=== PATIENT | female | born 1935 | race Caucasian/White ===

== ENCOUNTER 2018-12-29 10:49 | Emergency (ER) | payer MEDICARE ==
[2018-12-29 11:04] VITALS: RESP 18
[2018-12-29] MEDS ORDERED: LIDOCAINE 1% INJ 10MG/ML (20 ML MDV) SQ ONE (11:14)
--- NOTE | 2018-12-29 11:22 | ED ---
General Adult HPI - General Chief complaint: Wound/Laceration Stated complaint: hand laceration Time Seen by Provider: 12/29/18 11:07 Source: patient, RN notes reviewed Mode of arrival: ambulatory Limitations: no limitations - History of Present Illness Initial comments: 83-year-old female presents to the emergency department for a chief complaint of laceration to the left pinky. Patient states she was wearing her slippers and coming back into her condo when she did not pick up operator her foot fired and tripped. Patient states she hit her hand against the side of the door and it cut her. Patient did not hit her head. She did not sustain any other injuries. There is no dizziness or lightheadedness preceding the fall. Patient is up-to-date on tetanus.Patient has no other complaints at this time including shortness of breath, chest pain, abdominal pain, nausea or vomiting, headache, or visual changes. - Related Data Home Medications Medication Instructions Recorded Confirmed Levothyroxine Sodium [Synthroid] 25 mcg PO DAILY 09/26/14 09/26/14 Pravastatin Sodium [Pravachol] 1 tab PO HS 09/26/14 09/26/14 Fish Oil(Unknown) 1 cap PO DAILY@1200 12/29/18 12/29/18 Multivitamins, Thera [Multivitamin 1 tab PO DAILY@1200 12/29/18 12/29/18 (formulary)] Vitamin C(Unknown) 1 tab PO DAILY@1200 12/29/18 12/29/18 Vitamin C/Biotin [Hair, Skin and 1 tab PO DAILY@1200 12/29/18 12/29/18 Nails] Allergies Allergy/AdvReac Type Severity Reaction Status Date / Time No Known Allergies Allergy Verified 12/29/18 11:54 Review of Systems ROS Statement: Those systems with pertinent positive or pertinent negative responses have been documented in the HPI. ROS Other: All systems not noted in ROS Statement are negative. Past Medical History Past Medical History: Hyperlipidemia, Thyroid Disorder Additional Past Medical History / Comment(s): on synthroid; gets heart burn depending on what she eats History of Any Multi-Drug Resistant Organisms: None Reported Past Surgical History: Orthopedic Surgery, Tonsillectomy Additional Past Surgical History / Comment(s): T&A WHILE IN COLLEGE; CARPEL TUNNEL RELEASE RT HAND; SKIN CLOSURE DUE TO A CUT FROM BROKEN GLASS. Smoking Status: Former smoker Past Alcohol Use History: None Reported Past Drug Use History: None Reported - Past Family History Father Family Medical History: Prostate Disorder Additional Family Medical History / Comment(s): FATHER OF PROSTATE CANCER General Exam Limitations: no limitations General appearance: alert, in no apparent distress Head exam: Present: atraumatic, normocephalic, normal inspection Eye exam: Present: normal appearance, PERRL, EOMI. Absent: scleral icterus, conjunctival injection ENT exam: Present: normal exam, mucous membranes moist Neck exam: Present: normal inspection, full ROM. Absent: tenderness, meningismus, lymphadenopathy Respiratory exam: Present: normal lung sounds bilaterally. Absent: respiratory distress, wheezes, rales, rhonchi, stridor Cardiovascular Exam: Present: regular rate, normal rhythm, normal heart sounds. Absent: systolic murmur, diastolic murmur, rubs, gallop, clicks Extremities exam: Present: full ROM (Full range motion of the left fifth digit), normal capillary refill (Capillary refill less than 2 seconds, radial pulse 2+ in the left upper extremity), other (Sensation intact in the left upper extremity. There is a 3 cm laceration noted on the palmar ulnar surface proximal phalanx left fifth finger. This is flap-like in nature. No evidence of foreign body. No evidence of deep structure injury.) Course Vital Signs 12/29/18 11:02 Temperature 98.4 F Pulse Rate 80 Respiratory 18 Rate Blood Pressure 154/83 O2 Sat by Pulse 96 Oximetry Procedures - Laceration Laceration #1 Consent Obtained: verbal consent Indication: laceration Site: other (Finger) Size (cm): 3 Description: flap Depth: simple, single layer Anesthetic Used: lidocaine 1% Anesthesia Technique: local infiltration Amount (mls): 2 Pre-repair: wound explored, irrigated extensively (With saline pressure irrigation), deep structures intact Type of Sutures: nylon Size of Sutures: 5-0 Number of Sutures: 6 Technique: simple, interrupted Patient Tolerated Procedure: well, no complications Medical Decision Making - Medical Decision Making 83-year-old female presents to the emergency department for a chief complaint of laceration. Patient fell after a trip and fall and hit her hand against the door. Patient has a 3 cm flap-like laceration noted to the left fifth digit. Did not hit her head or sustain any other injuries. No blood thinners. This was repaired using simple interrupted sutures without any difficulty. Discussed follow-up precautions and return in 7-10 days. Discussed returning if she has any other worsening symptoms. Up-to-date on tetanus Disposition Clinical Impression: Laceration Disposition: HOME SELF-CARE Condition: Good Instructions (If sedation given, give patient instructions): Care For Your Stitches (ED), Laceration (ED) Additional Instructions: Please keep the area clean. You may shower after 24 hours. Return in 7-10 days to have sutures removed. Return if you have any worsening symptoms such as signs of infection including streaking redness, spreading redness, drainage, or fever. Is patient prescribed a controlled substance at d/c from ED?: No Referrals: Pablo Hutchins DO [Primary Care Provider] - 1-2 days Time of Disposition: 12:21
--- NOTE | 2018-12-29 11:48 | XR ---
Fifth digit left hand HISTORY: Laceration 3 views of the fifth digit of the left hand Osteoarthritic changes are present. Bone mineralization is reduced. No fracture or dislocation. IMPRESSION: No radiopaque foreign body. Marked osteoarthritic changes.
[2018-12-29 12:39] VITALS: BP 129/79; PULSE 70; TEMP 98.5
== END 2018-12-29 12:39 | disposition home or self-care (01) ==
LOC: EC 10:49
DX: S61.217A Laceration without foreign body of left little finger without damage to nail, initial encounter (principal); E78.5 Hyperlipidemia, unspecified; E07.9 Disorder of thyroid, unspecified; Z79.890 Hormone replacement therapy; Z79.899 Other long term (current) drug therapy; Z87.891 Personal history of nicotine dependence; W45.8XXA Other foreign body or object entering through skin, initial encounter; Y92.009 Unspecified place in unspecified non-institutional (private) residence as the place of occurrence of the external cause
CPT/HCPCS: 73140; 99283; 12002; J2001

== ENCOUNTER → 2021-10-17 | Outpatient (CLI) | payer MEDICARE ==
--- NOTE | 2021-10-17 19:28 | ECHOF ---
Referral Reason:I10 hypertension MEASUREMENTS -------- HEIGHT: 157.5 cm WEIGHT: 67.1 kg BP: 142/75 RVIDd: 2.6 cm (< 3.3) IVSd: 1.0 cm (0.6 - 1.1) LVIDd: 3.7 cm (3.9 - 5.3) LVPWd: 0.9 cm (0.6 - 1.1) IVSs: 1.4 cm LVIDs: 2.8 cm LVPWs: 1.5 cm LA Diam: 3.1 cm (2.7 - 3.8) LAESV Index (A-L): 24.06 ml/m Ao Diam: 3.4 cm (2.0 - 3.7) AV Cusp: 1.3 cm (1.5 - 2.6) MV EXCURSION: 10.933 mm (> 18.000) MV EF SLOPE: 22 mm/s (70 - 150) EPSS: 1.1 cm MV E Ramakrishna: 1.12 m/s MV DecT: 277 ms MV A Ramakrishna: 1.62 m/s MV E/A Ratio: 0.69 AV maxP.65 mmHg AV meanP.26 mmHg FINDINGS -------- Sinus rhythm. This was a technically adequate study. The left ventricular size is normal. Left ventricular wall thickness is normal. Overall left vent ricular systolic function is normal with, an EF between 60 - 65 %. The right ventricle is normal in size. Normal LA size by volume 22+/-6 ml/m2. The right atrium is normal in size. Interatrial and interventricular septum intact. There is mild to moderate aortic valve sclerosis. There is mild aortic stenosis present. Peak/karl n gradient across the Aortic Valve is 16.65mmHg / 8.26mmHg. The mitral valve leaflets are mildly thickened. Severe mitral annular calcification present. The peak and mean MV gradients are 17.22mmHg 4.98mmHg as measured by doppler. [id number] mitral stenosis. The tricuspid valve appears structurally normal. Unable to estimate RVSP due to inadequate TR jet s pectral doppler profile. Trace/mild (physiologic) pulmonic regurgitation. The aortic root size is normal. Normal inferior vena cava with normal inspiratory collapse consistent with estimated right atrial pre ssure of 5 mmHg. There is no pericardial effusion. CONCLUSIONS -------- 1. The left ventricular size is normal. 2. Left ventricular wall thickness is normal. 3. Overall left ventricular systolic function is normal with, an EF between 60 - 65 %. 4. There is mild to moderate aortic valve sclerosis. 5. There is mild aortic stenosis present. 6. Peak/mean gradient across the Aortic Valve is 16.65mmHg / 8.26mmHg. 7. The mitral valve leaflets are mildly thickened. 8. Severe mitral annular calcification present. 9. The peak and mean MV gradients are 17.22mmHg 4.98mmHg as measured by doppler. 10. [id number] mitral stenosis. 11. Trace/mild (physiologic) pulmonic regurgitation. 12. There is no pericardial effusion. TRADE SHOW COORDINATOR: Marilin David RDCS
== END | disposition home or self-care (01) ==
LOC: RADECHMAIN 11:16
PROVIDERS: ATTEND Family Medicine
DX: I10 Essential (primary) hypertension (principal); I37.1 Nonrheumatic pulmonary valve insufficiency
CPT/HCPCS: 93306